=== PATIENT | male | born 1975 | race Caucasian/White ===

== ENCOUNTER → 2020-05-21 | Outpatient (CLI) | payer BC ==
--- NOTE | 2020-05-24 08:30 | Diagnostic Imaging Report ---
TECHNIQUE: Magnetic resonance imaging of the LEFT foot was performed WITHOUT injected contrast. HISTORY: Left midfoot and forefoot pain, plantar fascial tear COMPARISON: None available. DISCUSSION: Bone: No focal or infiltrative bone marrow replacing abnormality. No acute fracture or osteonecrosis. Joints: Mild degenerative arthrosis of the first MTP joint. The Lisfranc alignment is intact. Soft Tissues: Edema in the distal aspect of the flexor hallucis brevis muscle and mild edema along the medial sesamoid phalangeal ligament. No tear of the sesamoid phalangeal ligaments or intersesamoid ligament. No intermetatarsal neuroma or bursitis. IMPRESSION: Findings of first plantar plate sprain (turf toe). No high-grade tear. The mid and distal plantar fascia is intact. Signed by: Dr. Harvinder Pike M.D. on 05/24/2020 8:26 AM
== END ==
LOC: MRI 13:29
PROVIDERS: ATTEND Podiatrist Foot & Ankle Surgery
DX: S96.912A Strain of unspecified muscle and tendon at ankle and foot level, left foot, initial encounter (principal)